=== PATIENT | female | born 1935 | race Caucasian/White ===

== ENCOUNTER 2018-07-04 13:00 | Emergency (ER) | payer MEDICARE, SELFPAY ==
[2018-07-04 13:00] VITALS: BP 165/74; PULSE 103; RESP 16; TEMP 36.8; O2SAT 98; BMI 28.2
--- NOTE | 2018-07-04 14:53 | CT_ITS ---
STUDY: CT BRAIN WITHOUT CONTRAST REASON FOR EXAM: Female, 82 years old. Fall. Laceration. RADIATION DOSAGE (If Supplied By Facility): CTDIvol = ( 44.99 ) mGy, DLP = ( 779.24 ) mGycm TECHNIQUE: Transaxial CT imaging of the brain was performed without administration of intravenous contrast material. Individualized dose optimization techniques were used for this CT. COMPARISON: None. FINDINGS: Soft tissue swelling in the right frontal region. Normal calvarium. Right nasal fracture of uncertain age. There is mild cerebral atrophy with widening of the extra-axial spaces and ventricular dilatation. Normal white matter tracts of the cerebral hemispheres. Normal basal ganglia and thalami. Normal brainstem. There is mild cerebellar atrophy. There is no intracranial hemorrhage. There are no findings of an acute ischemic infarction. Normal visualized paranasal sinuses. CT/Brain/Head without Contrast IMPRESSION: Chronic involutional changes of the brain. Soft tissue swelling. No hemorrhage. Electronically Signed: Ja Johnston MD at 16:08 EDT , Service support ,
--- NOTE | 2018-07-04 14:53 | CT_ITS ---
STUDY: CT CERVICAL SPINE WITHOUT CONTRAST REASON FOR EXAM: Female, 82 years old. FELL STRUCK HEAD, LAC TO RT EYE BROW RADIATION DOSAGE (If Supplied By Facility): CTDIvol = ( 22.73 ) mGy, DLP = ( 458.38 ) mGycm TECHNIQUE: High resolution transaxial imaging was performed without contrast material. Sagittal and coronal images were reconstructed. Individualized dose optimization techniques were used for this CT. COMPARISON: None FINDINGS: Normal craniovertebral junction. There are degenerative changes of the anterior atlantoaxial articulation. Normal odontoid process. There is straightening of the normal cervical lordosis. Normal vertebral bodies and posterior osseous elements. No fracture. C2-3: Normal endplates. Normal disc height and morphology. Normal central canal and intervertebral neuroforamina. Mild bilateral facet arthropathy. C3-4: Disc height loss with degenerative endplate changes are noted. There is mild bilateral facet arthropathy and uncovertebral joint hypertrophy. There is mild encroachment upon the right neural foramen. The left neural foramen is patent. No central canal stenosis. C4-5: Marked disc height loss with fusion across the disc space and marginal osteophytes noted. There is mild bilateral facet arthropathy. There is no evidence of significant central or foraminal encroachment. C5-6: Marked disc height loss with prominent marginal osteophytes and uncovertebral joint hypertrophy noted. There is impression upon the ventral aspect of the thecal sac. AP diameter of the thecal sac is approximately 8 mm, a mild relative central canal stenosis. There is no evidence of lateral recess stenosis. There is moderate left and mild right neural foraminal encroachment. No significant facet arthropathy. C6-7: Disc height loss with anterior and posterior marginal osteophytes and uncovertebral joint hypertrophy is noted. There is no evidence of significant central canal stenosis. The neural foramina are patent. C7-T1: Disc height loss is noted. There are marginal osteophytes and there is subtle kyphosis at this level with anterior listhesis by approximately 1.5 mm asymmetric to the left but alignment central and to the right appears preserved. There is moderate posterior facet arthropathy. I suspect this subtle malalignment is secondary to facet arthropathy. There is no evidence of significant central or foraminal encroachment. Normal visualized soft tissue structures. CT/Spine Cervical without Contras IMPRESSION: Multilevel degenerative changes, as described above. No acute traumatic deformity. Electronically Signed: Gladys Chatterjee MD at 15:39 EDT , Service support ,
--- NOTE | 2018-07-04 15:07 | ED.DCSUM_ITS ---
- ER Visit Summary Date of Service: 07/04/18 Chief Complaint: Fall History of Present Illness: The patient is a 82 F states that she was walking her 3-year-old when she thinks may be she missed a step on the concrete and fell striking her face. She notes abrasions contusion to bilateral knees as well as right hand and fingers. She struck the concrete with her forehead. Probable loss of consciousness. No vomiting. No known blood thinners. Patient notes hematoma and abrasion to the right forehead. Noted laceration to the right upper eyelid. She also notes nasal abrasion and upper lip abrasion. Tetanus was updated this year Physical Examination: Afebrile vital signs are stable Gen: Well-nourished well-developed Head: Normocephalic right forehead hematoma with abrasion. Superficial nasal abrasion. Right periorbital abrasion and contusion with 1 cm upper lid laceration that is not through and through. Upper lip abrasion top dentures removed to reveal no laceration on the hard palate. No dental trauma. Eyes: Perrl EOMI ENT: TMs clear no rhinorrhea moist mucous membranes Neck: Supple no lymphadenopathy no JVD nontender CVS: Regular rate rhythm no murmurs normal S1-S2 Respiratory: No distress clear to auscultation bilaterally chest nontender Abdomen: Soft nontender nondistended normal bowel sounds no masses Back: Nontender Extremity: Bilateral knee contusion with superficial abrasion and right hand superficial abrasions Skin: Normal color no rash Neuro: alert orientated ?3 CN II-XII intact normal strength sensation reflexes gait cerebellar Psych: Normal affect normal mood Test Results: CT brain and cervical spine were obtained. Emergency Department Course and Treatment: Wound was locally anesthetized using 1% lidocaine and washed with Shur-Clens. It was explored and closed using a tot al of 4 simple interrupted 6-0 Ethilon sutures. Wound care was discussed with family. Stitches will need to be removed in 5-7 days. Impression: 1. Forehead hematoma 2. 1 cm right upper eyelid laceration with repair 3. Multiple site abrasions This note was generated with [employer] dictation software. It may contain incorrect words, spelling, and punctuation that were not noted in review of the chart prior to signing ED Disposition - Plan for ED Patient: Disposition: Home or Assisted Living Chief Complaint: Fall Instructions: ED Laceration Facial Sutr Tape, ED Abrasion Referrals: Judith Chan MD [Primary Care Provider] - 5 Days for suture removal
[2018-07-04 16:33] VITALS: BP 145/71; PULSE 96; RESP 16
== END 2018-07-04 16:33 | disposition home or self-care (01) ==
PROVIDERS: Emergency Provider Emergency Medicine; Family Provider Internal Medicine; PCP Internal Medicine
DX: S01.111A Laceration without foreign body of right eyelid and periocular area, initial encounter (principal); W17.89XA Other fall from one level to another, initial encounter; S00.31XA Abrasion of nose, initial encounter; S00.511A Abrasion of lip, initial encounter; S60.512A Abrasion of left hand, initial encounter; S60.511A Abrasion of right hand, initial encounter; S60.418A Abrasion of other finger, initial encounter; S80.212A Abrasion, left knee, initial encounter; S80.211A Abrasion, right knee, initial encounter; S00.81XA Abrasion of other part of head, initial encounter; S60.222A Contusion of left hand, initial encounter; S60.221A Contusion of right hand, initial encounter; S60.00XA Contusion of unspecified finger without damage to nail, initial encounter; S80.02XA Contusion of left knee, initial encounter; S80.01XA Contusion of right knee, initial encounter; S05.11XA Contusion of eyeball and orbital tissues, right eye, initial encounter; S00.531A Contusion of lip, initial encounter; I10 Essential (primary) hypertension; E78.00 Pure hypercholesterolemia, unspecified; Z79.899 Other long term (current) drug therapy
CPT/HCPCS: 12011; 70450; 72125; 99283

== ENCOUNTER 2020-08-17 11:24 | Emergency (ER) | payer MEDICARE, SELFPAY ==
[2020-08-17 11:25] VITALS: BP 161/89; PULSE 103; RESP 16; TEMP 36.3; O2SAT 100; BMI 25.3
[2020-08-17 12:32] LABS: Absolute Lymphocyte Count 1.47 X10^3/uL (0.83-4.51); Absolute Neutrophil Count 4.4 X10^3/uL (2.0-7.7); Basophil# 0.02 X10^3/uL; Basophil% 0.3 % (0-1); Eosinophil# 0.02 X10^3/uL; Eosinophils% 0.3 % (0-5); Hematocrit 48.3 % (37-47); Hemoglobin 16.5 g/dL (12.0-15.0); Lymphocyte # 1.47 X10^3/ul (4.0); Lymphocyte % 22.4 % (19-41); Mean Corp Hgb Conc 34.2 g/dL (32-36); Mean Corpuscular Hgb 31.2 pg (27.0-32.0); Mean Corpuscular Volume 91.3 fL (81-99); Mean Platelet Vol. 10.5 fl (6.2-12.0); Monocyte# 0.63 X10^3/uL; Monocyte% 9.6 % (0-10); NRBC Flagged by Analyzer 0 % (0-5); Neutrophil % 66.9 % (47-70); Platelet Count 249 K/mm3 (150-450); RBC Distribution Width CV 11.9 % (11.6-14.6); Red Blood Count 5.29 M/mm3 (4.2-5.4); White Blood Count 6.6 K/mm3 (4.4-11.0)
[2020-08-17 12:44] LABS: Anion Gap 7 (5-15); BUN 16 mg/dL (7-18); BUN/Creat Ratio 14.7 RATIO (10-20); Calcium,Total 9.2 mg/dL (8.5-10.1); Chloride 97 mmol/L (98-107); Creatinine, Serum 1.09 mg/dL (0.55-1.02); EST Glomerular Filtration Rate 51 mL/min (>60); Est Glom Filt Rate - Afr Amer 62 mL/min (>60); Estimated Creatinine Clearance 32.35 ml/min; Glucose 108 mg/dL (74-106); Potassium 3.2 mmol/L (3.5-5.1); Sodium Level 135 mmol/L (136-145)
[2020-08-17 12:52] LABS: Mucous, Urine 0 SEEN /hpf (<or=2+); Red Blood Cells-Urine 0 SEEN /hpf (0-5)
[2020-08-17 12:56] LABS: Color, Urine Yellow (Yellow); Glucose, Dipstick Normal (Normal); Ketone-Dipstick Negative (Negative); Leukocyte Esterase-Dipstick 100 /ul (Negative); Nitrite-Dipstick Negative (Negative); Occult Blood-Urine Negative /ul (Negative); Protein-Dipstick Negative (Negative); Urine Bilirubin Dipstick Negative (Negative); Urine Clarity Sl. Cloudy (Clear); Urine Urobilinogen Normal (Normal)
[2020-08-17 12:57] VITALS: BP 143/69; PULSE 81; RESP 13; O2SAT 99
[2020-08-17] MEDS: Ondansetron 4 MG/2 ML Vial IV (12:59)
[2020-08-17 13:02] LABS: Bacteria 1+ /hpf (None Seen); Squamous Epithelial Cells - UA 5-10 SEEN /hpf (5-10); White Blood Cells 10-25 SEEN /hpf (0-5)
[2020-08-17 13:21] VITALS: BP 132/56; BP 141/66; BP 150/64; PULSE 84; PULSE 85; PULSE 96
--- NOTE | 2020-08-17 14:02 | ED.DCSUM_ITS ---
- ER Visit Summary Date of Service: 08/17/20 Chief Complaint: Vomiting and lightheaded History of Present Illness: The patient is a [address] Chan. She reports that her was diagnosed with Covid 10 days ago. She states she tested negative that time. She reports that she is been vomiting intermittently over the past week. She estimates that she is vomited twice. No blood in her emesis. No diarrhea. No abdominal pain. No fever or chills. No chest pain, cough, or difficulty breathing. However, she reports that she has generalized weakness and feels lightheaded when she stands. She denies any other neurologic complaints. Physical Examination: Vitals: Stable. Afebrile. General: Well-nourished and well-developed. Head: Normocephalic atraumatic. Neck: Supple, no lymphadenopathy. No JVD. Nontender. Cardiovascular: Regular rate and rhythm. No murmurs. Respiratory: No respiratory distress. Clear to auscultation bilaterally. Abdominal: Soft, nontender, nondistended, normal bowel sounds. No guarding, rebound, or peritoneal signs. Back: Nontender. Extremities: Nontender, no edema. Skin: Normal color, no rash. Neurologic: Alert and oriented ?3. Cranial nerves II through XII are intact. Normal strength and sensation. Psych: Normal affect. Test Results: CBC shows an H&H of 16.5 and 48.3. Chem-7 shows sodium 135, potassium 3.2, chloride 97, glucose 108, creatinine 1.09. UA shows 10-25 white blood cells with 1+ bacteria and leukocytes. Emergency Department Course and Treatment: Patient was given a dose of Zofran IV. She was given a 500 cc bolus of normal saline. She was given Rocephin IV and her urine was sent for culture. She had negative orthostatic vital signs. Her ambulatory pulse ox was 98% on room air. Treatment Plan: Patient feels well and would like to go home. She will be discharged on 3 days of Cipro while she waits for her urine culture. She is also given Zofran for her nausea. Follow-up with her primary care physician 1 to 2 days if not improving. Return to the emergency department for any worsening symptoms. Disposition: To home in improved and stable condition. Impression: 1. Lightheadedness. 2. Exposure to COVID-19. 3. UTI. This note was generated with [employer] dictation software. It may contain incorrect words, spelling, and punctuation that were not noted in review of the chart prior to signing ED Disposition - Plan for ED Patient: Disposition: Home or Assisted Living Instructions: ED CYSTITIS Female Adult Prescriptions: Ciprofloxacin [Cipro] 500 mg PO BID #6 tab Prescription Printed Ondansetron [Zofran Odt] 4 mg PO Q8H PRN PRN #10 tab PRN Reason: Nausea Prescription Printed Referrals: Judith Chan MD [Primary Care Provider] - 3-5 Days if not improving
[2020-08-17] MEDS: Ceftriaxone 1 GM/50 ML BAG IV (14:19)
[2020-08-17 14:21] VITALS: BP 148/59; PULSE 85; RESP 12; O2SAT 99
[2020-08-17 15:04] VITALS: BP 148/59; PULSE 92; RESP 15; O2SAT 99
== END 2020-08-17 15:35 | disposition home or self-care (01) ==
PROVIDERS: Emergency Provider Emergency Medicine; PCP Internal Medicine
DX: R42 Dizziness and giddiness (principal); N39.0 Urinary tract infection, site not specified; Z20.828 Contact with and (suspected) exposure to other viral communicable diseases; I10 Essential (primary) hypertension; Z79.899 Other long term (current) drug therapy
CPT/HCPCS: 80048; 81001; 85025; 87077; 87086; 87088; 87186; 96361; 96365; 96374; 99285; J7040; A4216; J2405

== ENCOUNTER 2020-08-20 18:09 | Emergency (ER) | payer MEDICARE, SELFPAY ==
[2020-08-20 18:10] VITALS: BP 172/79; PULSE 107; RESP 16; TEMP 36.6; O2SAT 98; BMI 24.7
--- NOTE | 2020-08-20 19:07 | CT_ITS ---
STUDY: CT BRAIN WITHOUT CONTRAST REASON FOR EXAM: Female, 85 years old. VERTIGO/N/V RADIATION DOSAGE (If Supplied By Facility): CTDIvol = ( 44.99 ) mGy, DLP = ( 745.49 ) mGycm TECHNIQUE: Transaxial CT imaging of the brain was performed without administration of intravenous contrast material. Individualized dose optimization techniques were used for this CT. COMPARISON: Prior head CT exam of 07/04/2018 FINDINGS: Normal soft tissue structures. Normal calvarium. There is mild cerebral atrophy with widening of the extra-axial spaces and ventricular dilatation. There are areas of decreased attenuation within the white matter tracts of the supratentorial brain, consistent with microvascular disease changes. Normal basal ganglia and thalami. Normal brainstem. There is mild cerebellar atrophy. Carotid artery calcifications. There is no intracranial hemorrhage. There are no findings of an acute ischemic infarction. Normal visualized paranasal sinuses. CT/Brain/Head without Contrast IMPRESSION: No acute intracranial findings or changes. Negative for hemorrhage, hematoma or extra-axial fluid collection. Negative for demarcation of the new nonhemorrhagic infarct zone. Mild involutional changes stable from prior exam. Electronically Signed: Anastasia Gutierrez MD at 20:17 EST , Service support ,
--- NOTE | 2020-08-20 19:09 | ED.DCSUM_ITS ---
History of Present Illness Chief Complaint: Dizziness Informant: Patient Onset: Weeks - 1.5 Context: Gradual Onset Timing: Intermittent Quality: spinning dizziness Current Severity: Mild Maximum Severity: Moderate Worsened by: getting up Relieved by: remaining still, lying down Associated Symptoms: n/v when dizziness increases/occurs Narrative: Patient has been having dizziness and vomiting off and on, but mostly nausea for the past week and a half. She was here 3 days ago for the same symptoms and treated for lightheadedness and a urinary tract infection with Cipro, she is not getting any better with regards to her dizziness. She states it seems more like spinning. When she gets dizzy, she gets nauseated. It has been persistent. She denies headaches, tinnitus, earache, otorrhea, vision change, peripheral neurologic symptoms. She does not recall having this before. Turning her head does not reproduce major symptoms, but changing her postural position does. She has not felt near syncopal. When walking, she does feel off balance at times. With regards to COVID-19, she was tested about 1.5 or 2 weeks ago and tested negative, the same time as her when he tested positive. He did develop symptoms and has had symptoms of basically a mild upper respiratory tract infection. She does feel achy all over, she has not lost sensation of taste or smell, she denies cough, fevers, chills. - Past Medical History (1) Hypertension Status: Chronic Past Medical History - Allergies and Home Meds Allergies/Adverse Reactions: Allergies No Known Allergies Allergy (Verified 08/20/20 18:09) Primary Care Physician: Judith Chan MD [Primary Care Provider] - Lives: Spouse/ Significant Other Smoking Status: Never smoker Review of Systems General: Reports: Malaise. Denies: Chills, Fever, Sweats Eyes: Denies: Visual changes - bilaterally, Diplopia ENT: Denies: Bilateral ear pain, Rhinorrhea, Sore throat Cardiovascular: Denies: Chest pain, Palpitations Respiratory: Denies: Dyspnea, Cough, Dyspnea on exertion Gastrointestinal: Reports: Nausea, Vomiting. Denies: Abdominal pain, Diarrhea, Melena, Hematochezia Genitourinary: Denies: Dysuria, Hematuria, Frequency Musculoskeletal: Reports: Myalgias. Denies: Neck pain, Swelling, Extremity Pain Skin: Denies: Rash, Wounds Neurological: Reports: - - Vertigo. See HPI.. Denies: Headache, Weakness, Numbness Physical Exam Vital Signs/Narrative: Vital Signs Temp Pulse Resp BP Pulse Ox 08/20/20 18:10 97.8 F 107 H 16 172/79 H 98 Inital Vital Signs reviewed: Yes General: Well nourished, Well developed, No Acute Distress Head: Normocephalic, Atraumatic Eyes: Perrl, EOMI, - - Fatigable horizontal nystagmus. No vertical or rotatory nystagmus. ENT: Moist mucous membranes, No rhinorrhea, TM's clear. Negative for: Sinus tenderness Neck: Supple, Nontender, - - No carotid bruits bilaterally Cardiovascular: Regular rate, Regular rhythm, No murmurs Respiratory: No distress, CTA bilaterally, Chest nontender Abdomen: Soft, Nontender, Nondistended, Normal bowel sounds Back: Nontender, Normal Inspection Extremities: Nontender, No edema. Negative for: Calf Tenderness Skin: Normal color, No rash, No Trauma Neurological: Alert, Oriented x3, Cranial nerves II-XII grossly intact, Normal Strength, Normal Sensation, - - Normal ipccvo-be-chnp bilaterally, but abnormal nosq-fl-lmxh bilaterally with ataxia on both. Tariq-Hallpike maneuver causes horizontal nystagmus and mild symptoms bilaterally. Psychological: Normal affect, Normal Mood Diagnostic/Tx/Re-eval Impressions Brain CT 08/20/20 19:07 IMPRESSION: No acute intracranial findings or changes. Negative for hemorrhage, hematoma or extra-axial fluid collection. Negative for demarcation of the new nonhemorrhagic infarct zone. Mild involutional changes stable from prior exam. Electronically Signed: Anastasia Guteirrez MD at 20:17 EST , Service support , 08/20/20 19:07 Brain/Head without Contrast [CT] Stat Laboratory Results 08/20/20 19:35 Sodium 134 L Potassium 3.1 L Chloride 97 L Carbon Dioxide 29.0 Anion Gap 8 BUN 12 Creatinine 1.07 H Estim Creat Clear Calc 32.95 Est GFR (MDRD) Af Amer 63 Est GFR (MDRD) Non-Af 52 L BUN/Creatinine Ratio 11.2 Glucose 134 H Calcium 9.1 - Medical Decision Making With regard to the patient's possible urinary tract infection that she had no urinary symptoms from, her culture returned positive for Staph hominis hominis, in addition to contaminant. It is sensitive to moxifloxacin, so ciprofloxacin should be okay. Therefore I would consider her adequately covered. However I do not think her possible urinary tract infection is causing her vertigo. CT head obtained, and I repeated her basic metabolic panel since she had hypokalemia 3 days ago, which showed that her potassium is even lower from 3.2- 3.1. This was treated. Also sent a new Covid swab since she does have some nonspecific symptoms here, with a who is Covid positive, and she may have converted positive. This will be a send out and will not return today. She states that he just passed his 10-day dali. She understands that the CDC recommendations are that she should quarantine for 14 days beyond his 10 days, since she has continual contact with him, assuming she does not develop specific Covid symptoms. It is assumed that most of her symptoms now are related to her hypokalemia and her vertigo. With a negative head CT after 1.5 weeks of symptoms I am comfortable with her following up as an outpatient and treating her symptomatically. After meclizine and Zofran here she does feel better. Will prescribe these in addition to potassium and have her follow-up as an outpatient she is comfortable with that plan. ED Disposition - Plan for ED Patient: Disposition: Home or Assisted Living Diagnosis: Vertigo, Hypokalemia Instructions: ED Vertigo Unspecified, ED Potassium Deficiency Prescriptions: Meclizine HCl 25 mg PO Q8H PRN #20 tab PRN Reason: dizziness/vertigo Prescription Printed Potassium Chloride 20 meq PO BID #14 tab.er.prt Prescription Printed Ondansetron [Zofran Odt] 8 mg PO Q8H PRN PRN #16 tab PRN Reason: Nausea Prescription Printed Referrals: Judith Chan MD [Primary Care Provider] - 5-7 Days
[2020-08-20] MEDS: Ondansetron ODT 4 MG Tablet 8 MG PO (19:25)
[2020-08-20] MEDS: Meclizine HCl 25 MG Tablet PO (19:25)
[2020-08-20 19:57] LABS: Anion Gap 8 (5-15); BUN 12 mg/dL (7-18); BUN/Creat Ratio 11.2 RATIO (10-20); Calcium,Total 9.1 mg/dL (8.5-10.1); Chloride 97 mmol/L (98-107); Creatinine, Serum 1.07 mg/dL (0.55-1.02); EST Glomerular Filtration Rate 52 mL/min (>60); Est Glom Filt Rate - Afr Amer 63 mL/min (>60); Estimated Creatinine Clearance 32.95 ml/min; Glucose 134 mg/dL (74-106); Potassium 3.1 mmol/L (3.5-5.1); Sodium Level 134 mmol/L (136-145)
[2020-08-20 21:02] VITALS: BP 156/68; PULSE 87; RESP 18; O2SAT 98
== END 2020-08-20 21:02 | disposition home or self-care (01) ==
PROVIDERS: Emergency Provider Emergency Medicine; PCP Internal Medicine
DX: U07.1 COVID-19 (principal); R42 Dizziness and giddiness; E87.6 Hypokalemia; I10 Essential (primary) hypertension; Z79.899 Other long term (current) drug therapy
CPT/HCPCS: 70450; 80048; 87635; 99282; A4216; U0003

== ENCOUNTER 2022-01-24 03:38 | Emergency (ER) | payer MEDICARE, SELFPAY ==
[2022-01-24 03:39] VITALS: BP 157/70; PULSE 95; RESP 18; TEMP 36.3; O2SAT 95; BMI 24.1
--- NOTE | 2022-01-24 03:51 | EKG12_ITS ---
Test Reason : GEN ILL Blood Pressure : / mmHG Vent. Rate : 091 BPM Atrial Rate : 091 BPM P-R Int : 124 ms QRS Dur : 070 ms QT Int : 356 ms P-R-T Axes : 069 072 071 degrees QTc Int : 437 ms Normal sinus rhythm Nonspecific ST abnormality Abnormal ECG Confirmed by JOSE WALLER, ARIAN ([id number]), order editor ERIC HILTON ([id number]) on 01/26/2022 9:21:39 AM Referred By: NIGEL Confirmed By:ARIAN GARCIA MD
--- NOTE | 2022-01-24 03:52 | ED.VIS.GI ---
HPI HPI - GI History of Present Illness Chief Complaint: Abd Pain Informant: patient and family Narrative Narrative: Presents with intermittent nausea vomiting past 2 days. Epigastric tenderness. No chest pains. Started after eating large meal at [employer] the night prior. No diarrhea. Normal bowel movement yesterday states little darker however been using Pepto-Bismol. No anticoagulation medicines. Symptoms return at midnight this evening vomiting x2 with no hematemesis. No abdominal surgery history. Status post lumbar injection with steroids by Dr. Castano, on . Denies any fevers. Denies urinary symptoms. PFSH PFS Medical History Hyperlipemia Hypertension Home Medications simvastatin 1 tab PO QHS 07/04/18 [History Last Taken 01/19/22] triamterene-hydrochlorothiazid 1 tab PO DAILY 07/04/18 [History Last Taken 01/23/22] ascorbic acid (vitamin C) [Vitamin C] 500 mg PO DAILY 01/24/22 [History Last Taken 01/19/22] nitrofurantoin monohyd/m-cryst [Macrobid] 100 mg PO Q12H 5 Days #10 cap 01/24/22 [Rx Last Taken Unknown] omeprazole 40 mg PO DAILY #30 cap 01/24/22 [Rx Last Taken Unknown] ondansetron 4 mg PO Q6H PRN #10 tab 01/24/22 [Rx Last Taken Unknown] sucralfate [Carafate] 1 g PO BID #60 tab 01/24/22 [Rx Last Taken Unknown] Allergy/AdvReac Type Severity Reaction Status Date / Time No Known Allergies Allergy Verified 01/24/22 03:42 Social History Smoking Status: Never smoker ROS ROS ED Constitutional Constitutional ED: Denies chills, fever(s) or sweats Eyes Eyes: Denies change in vision ENT ENT ED: Denies dysphagia or sore throat Cardiovascular Cardiovascular: Denies chest pain, leg edema, palpitations or racing heartbeat Respiratory/Chest Respiratory/Chest: Denies cough, dyspnea or dyspnea on exertion Gastrointestinal Gastrointestinal: Reports abdominal pain, nausea and vomiting; Denies diarrhea Genitourinary Genitourinary ED: Denies dysuria, hematuria or urinary frequency Musculoskeletal Musculoskeletal: Denies back pain, extremity pain or neck pain Integumentary Denies rash or wounds Neurologic Neurologic: Denies headache(s), paresthesias or weakness EXAM Physical Exam Const Vital Signs: 01/24/22 03:39 Temperature 97.3 F L Temperature Source Temporal Pulse Rate 95 Respiratory Rate 18 Blood Pressure 157/70 H Blood Pressure Mean 99 Pulse Ox 95 Oxygen Delivery Method Room Air Positive well nourished and well developed General Appearance ED: well developed and NAD HEENT HEENT Narrative: Mild dry mucosal membranes. normocephalic and atraumatic Eyes PERRL, EOMs intact bilaterally and conjunctivae normal General Eye ED: Yes normal appearance of both eyes Neck no lymphadenopathy and supple General: Negative for tenderness Chest Wall Chest: Negative for tenderness Resp normal respiratory effort and normal air movement Effort and Inspection: symmetric chest movement; Negative for respiratory distress Cardio regular rate, regular rhythm and no murmurs Peripheral Pulses: pulses 2+ throughout GI normal to inspection, nondistended, normoactive bowel sounds GI Narrative: Mild epigastric tenderness to deep palpation. Negative Yang's McBurney's tenderness. No guarding or rebound. Palpation: Negative for guarding or rebound tenderness present Back/Spine no CVA tenderness and no thoracic nor lumbar tenderness Extremity normal to inspection General Extremety ED: Negative for edema or tenderness General Extremity: Negative for edema Neuro oriented x3 and no sensory deficits noted Sensorium / Orientation: awake and alert Skin no rashes or lesions noted and no wounds MDM MDM MDM Narrative Medical decision making narrative: Vital signs stable. Labs stable. Urine with signs of infection. CT a/p negative. Improving symptoms. Tolerating PO fluids. Rx meds,follow up with GI. Lab Data Attestation: I reviewed the patient's lab results. Radiography Diagnostic Testing: Clinical Impression(s) from Imaging Studies Abdomen/Pelvis CT 01/24/22 04:26 IMPRESSION: There is diverticulosis. Electronically Signed: Ron Boogie MD at 6:05 EDT , EKG Initial EKG: Attestation: I personally reviewed and interpreted this EKG as follows: Comments: Sinus rate of 91, no ST changes T wave flattening in aVL, nonspecific. QTc 437. Discharge Plan Triage Chief Complaint: Abd Pain ED Provider: Aime Beth Dx/Rx/DC Orders Clinical Impression: Abdominal pain, Nausea and vomiting, Dehydration, Acute UTI Instructions: Urinary Tract Infections in Women, ED Gastritis (Adult) Prescriptions: New sucralfate [Carafate] 1 gram tablet 1 g PO BID Qty: 60 RF: 0 omeprazole 40 mg capsule,delayed release(DR/EC) 40 mg PO DAILY Qty: 30 RF: 0 ondansetron 4 mg tablet,disintegrating 4 mg PO Q6H PRN (Reason: nausea and vomiting) Qty: 10 RF: 0 nitrofurantoin monohyd/m-cryst [Macrobid] 100 mg capsule 100 mg PO Q12H 5 Days Qty: 10 RF: 0 No Action triamterene-hydrochlorothiazid 37.5-25 capsule 1 tab PO DAILY RF: 0 simvastatin 20 MG tablet 1 tab PO QHS RF: 0 ascorbic acid (vitamin C) [Vitamin C] 250 mg Tablet 500 mg PO DAILY RF: 0 Primary Care Provider: Judith Chan Referrals: Judith Chan MD [Primary Care Provider] - 3-5 Days FriendBurak DO [STAFF PHYSICIAN] - 1-2 Weeks Activity Restrictions/Additional Instructions: Abdominal labs normal CT scan normal only finding cyst diverticulosis. This is benign. Your notes mild infection. Take antibiotic as prescribed. Take other medicines as prescribed. Follow-up as an outpatient. Return if any worsening symptoms. Disposition Disposition: Home, Self Care Discharge Date/Time: 01/24/22 06:52
[2022-01-24] MEDS: 0.9% Normal Saline 1,000 ML 1000 ML IV (03:59)
[2022-01-24] MEDS: Ondansetron 4 MG/2 ML Vial IV (03:59)
[2022-01-24 04:03] LABS: Absolute Lymphocyte Count 1.75 X10^3/uL (0.83-4.51); Absolute Neutrophil Count 12.4 X10^3/uL (2.0-7.7); Basophil# 0.02 X10^3/uL; Basophil% 0.1 % (0-1); Eosinophil# 0.02 X10^3/uL; Eosinophils% 0.1 % (0-5); Hematocrit 46.4 % (37-47); Hemoglobin 15.7 g/dL (12.0-15.0); Lymphocyte # 1.75 X10^3/ul (0.83-4.51); Lymphocyte % 11.3 % (19-41); Mean Corp Hgb Conc 33.8 g/dL (32-36); Mean Corpuscular Hgb 30.6 pg (27.0-32.0); Mean Corpuscular Volume 90.4 fL (81-99); Mean Platelet Vol. 10.5 fl (6.2-12.0); Monocyte# 1.29 X10^3/uL; Monocyte% 8.3 % (0-10); NRBC Flagged by Analyzer 0 % (0-5); Neutrophil # 12.37 X10^3/uL (2.7-7.7); Neutrophil % 79.7 % (47-70); Platelet Count 310 K/mm3 (150-450); RBC Distribution Width CV 12.3 % (11.6-14.6); RBC Distribution Width SD 41.1 fl (35.1-43.9); Red Blood Count 5.13 M/mm3 (4.2-5.4); White Blood Count 15.5 K/mm3 (4.4-11.0)
[2022-01-24] MEDS: Famotidine 200 MG/20 ML MDV 20 MG in 0.9% Normal Saline (Pres. free 8 ML 300 MG IV (04:11)
[2022-01-24 04:20] LABS: AST(SGOT) 13 U/L (15-37); Alanine Aminotransfer ALT/SGPT 28 U/L (13-56); Albumin, Serum 3.6 g/dL (3.2-5.0); Alkaline Phosphatase 45 U/L (45-117); Anion Gap 11 (5-15); BUN 31 mg/dL (7-18); BUN/Creat Ratio 29.2 RATIO (10-20); Chloride 97 mmol/L (98-107); Creatinine, Serum 1.06 mg/dL (0.55-1.02); EST Glomerular Filtration Rate 52 mL/min (>60); Est Glom Filt Rate - Afr Amer 63 mL/min (>60); Estimated Creatinine Clearance 32.68 ml/min; Globulin 4.1 g/dL (2.2-4.2); Glucose 136 mg/dL (74-106); Lipase 325 U/L (73-393); Potassium 3.7 mmol/L (3.5-5.1); Protein, Total 7.7 g/dL (6.4-8.2); Sodium Level 135 mmol/L (136-145)
--- NOTE | 2022-01-24 04:26 | CT_ITS ---
STUDY: CT ABDOMEN AND PELVIS WITH CONTRAST REASON FOR EXAM: Female, 86 years old. abd pain RADIATION DOSAGE (If Supplied By Facility): CTDIvol = ( 11.85 ) mGy, DLP = ( 679.79 ) mGycm TECHNIQUE: Transaxial images were obtained from the dome of the diaphragm to the symphysis pubis without oral contrast. IV 100mL Isovue-[id number] was administered. Sagittal and coronal images were reconstructed. Individualized dose optimization techniques were used for this CT. COMPARISON: None. FINDINGS: The visualized lung bases are unremarkable. The visualized portions of the heart are within normal limits. Normal liver. Normal gallbladder and extrahepatic biliary system. Normal spleen. Normal pancreas. Normal bilateral adrenal glands. Normal right kidney. Normal left kidney. Normal visualized stomach. Normal small intestine. There is moderate diverticulosis of the colon.. The appendix is visualized and appears normal. Normal abdominal aorta. Normal inferior vena cava. Normal retroperitoneum. Normal urinary bladder. Normal abdominal wall. Normal osseous structures. CT/Abdomen/Pelvis W IV Cont ONLY IMPRESSION: There is diverticulosis. Electronically Signed: Ron Boogie MD at 6:05 EDT ,
[2022-01-24] MEDS: Metoclopramide 10 MG/2 ML Vial 5 MG IV (04:28)
[2022-01-24 05:29] LABS: Mucous, Urine 0 SEEN /hpf (<or=2+); Red Blood Cells-Urine 0 SEEN /hpf (0-5)
[2022-01-24 05:30] LABS: Color, Urine Yellow (Yellow); Glucose, Dipstick Normal (Normal); Ketone-Dipstick Negative (Negative); Leukocyte Esterase-Dipstick 100 /ul (Negative); Nitrite-Dipstick Negative (Negative); Occult Blood-Urine Negative /ul (Negative); Protein-Dipstick Negative (Negative); Urine Bilirubin Dipstick Negative (Negative); Urine Clarity Clear (Clear); Urine Urobilinogen Normal (Normal)
[2022-01-24 05:53] LABS: Bacteria RARE /hpf (None Seen); Squamous Epithelial Cells - UA 0-5 SEEN /hpf (5-10); White Blood Cells 0-5 SEEN /hpf (0-5)
[2022-01-24] MEDS: Mag Hydrox/Al Hydrox/Simeth 30 ML UDC PO (06:13)
[2022-01-24 06:30] VITALS: BP 124/59; PULSE 88; RESP 16; TEMP 36.6; O2SAT 98
[2022-01-24 06:50] VITALS: BP 124/74; PULSE 74; RESP 16; O2SAT 98
== END 2022-01-24 06:52 | disposition home or self-care (01) ==
PROVIDERS: Emergency Provider Emergency Medicine; PCP Internal Medicine; Visit Provider Emergency Medicine
DX: R10.816 Epigastric abdominal tenderness (principal); R11.2 Nausea with vomiting, unspecified; E78.5 Hyperlipidemia, unspecified; I10 Essential (primary) hypertension; Z79.899 Other long term (current) drug therapy
CPT/HCPCS: 74177; 80048; 80076; 81001; 83690; 85025; 87086; 87088; 93005; 96361; 96374; 96375; 99283; J7030; Q9967; J2405; J3490

== ENCOUNTER → 2024-03-13 | Outpatient (CLI) | payer MEDICARE, SELFPAY ==
--- NOTE | 2024-03-13 13:40 | RAD_ITS ---
PROCEDURE: Fluoroscopic guided Hip Injection DATE: March 13, 2024. INDICATION: Female, 88 years old. Chronic right hip pain. PHYSICIAN: Prince Mccain M.D. MEDICATIONS: 6 mg of betamethasone and 3 cc of 1% lidocaine. 2% lidocaine administered subcutaneously for local anesthesia. ACCESS SITE: Right hip. NEEDLE: 22-gauge spinal needle. FLUOROSCOPY TIME (if supplied): (0:21) minutes/seconds. 5.92 mGy. One image was obtained. FINDINGS: The risks, benefits, and alternatives to the procedure were explained to the patient. The specific risks of bleeding, infection, and neurovascular injury were detailed and accepted. Witnessed informed consent was obtained. A the needle was positioned under radiographic fluoroscopic localization. Approximately 2 cc of Isovue-200 instilled for localization purposes. Medication was then injected. The patient tolerated the procedure well without any immediate complications. RAD/Inj/Asp Elan Jt Should/Hip/Knee IMPRESSION: 1. Successful fluoroscopic guided hip injection. Electronically Signed: Prince Mccain MD at 14:28 EDT ,
[2024-03-13] MEDS: Lidocaine 2% (5ml sdv) 5 ML VIAL.MPF INFILT (13:58)
[2024-03-13] MEDS: Betamethasone/Betamethasone 30 MG/5 ML Vial 6 MG OPERA.SITE (14:00)
== END | disposition home or self-care (01) ==
LOC: RAD 13:06
PROVIDERS: PCP Internal Medicine; Referring Provider Specialist; Visit Provider Specialist
DX: M16.0 Bilateral primary osteoarthritis of hip (principal); I10 Essential (primary) hypertension
CPT/HCPCS: 20610; 77002; Q9967; J0702

== ENCOUNTER → 2024-04-15 | Outpatient (CLI) | payer MEDICARE, SELFPAY ==
[2024-04-15 17:43] LABS: Absolute Lymphocyte Count 2.05 X10^3/uL (0.83-4.51); Absolute Neutrophil Count 3.5 X10^3/uL (2.0-7.7); Basophil# 0.03 X10^3/uL; Basophil% 0.5 % (0-1); Eosinophil# 0.26 X10^3/uL; Eosinophils% 4.1 % (0-5); Hemoglobin 15.1 g/dL (12.0-15.0); Lymphocyte # 2.05 X10^3/ul (0.83-4.51); Lymphocyte % 32.5 % (19-41); Mean Corp Hgb Conc 32.8 g/dL (32-36); Mean Corpuscular Hgb 30.5 pg (27.0-32.0); Mean Corpuscular Volume 92.9 fL (81-99); Mean Platelet Vol. 10.7 fl (6.2-12.0); Monocyte# 0.47 X10^3/uL; Monocyte% 7.4 % (0-10); NRBC Flagged by Analyzer 0 % (0-5); Neutrophil # 3.48 X10^3/uL (2.7-7.7); Neutrophil % 55.2 % (47-70); Platelet Count 266 K/mm3 (150-450); RBC Distribution Width CV 11.9 % (11.6-14.6); RBC Distribution Width SD 40.5 fl (35.1-43.9); Red Blood Count 4.95 M/mm3 (4.2-5.4); White Blood Count 6.3 K/mm3 (4.4-11.0)
[2024-04-15 17:54] LABS: ALB/GLOB Ratio 0.9 RATIO (0.9-2.4); AST(SGOT) 12 U/L (15-37); Alanine Aminotransfer ALT/SGPT 22 U/L (13-56); Albumin, Serum 3.6 g/dL (3.2-5.0); Alkaline Phosphatase 50 U/L (45-117); Anion Gap 9 (5-15); BUN 24 mg/dL (7-18); BUN/Creat Ratio 19.8 RATIO (10-20); Calcium,Total 9.1 mg/dL (8.5-10.1); Chloride 103 mmol/L (98-107); Creatinine, Serum 1.21 mg/dL (0.55-1.02); EST Glomerular Filtration Rate 45 mL/min (>60); Est Glom Filt Rate - Afr Amer 54 mL/min (>60); Globulin 3.8 g/dL (2.2-4.2); Glucose 163 mg/dL (74-106); Potassium 3.6 mmol/L (3.5-5.1); Protein, Total 7.4 g/dL (6.4-8.2); Sodium Level 136 mmol/L (136-145)
== END | disposition home or self-care (01) ==
LOC: MTLAB 14:00
PROVIDERS: PCP Internal Medicine; Referring Provider Podiatrist; Visit Provider Podiatrist
DX: B35.1 Tinea unguium (principal)
CPT/HCPCS: 36415; 80053; 84550; 85025

== ENCOUNTER → 2024-10-21 | Outpatient (CLI) | payer MEDICARE, SELFPAY ==
--- NOTE | 2024-10-21 12:45 | MRI_ITS ---
STUDY: MRI LUMBAR SPINE WITHOUT CONTRAST REASON FOR EXAM: Female, 89 years old. H/O STRESS FX, LOW BACK PAIN AND WEAKNESS IN BILATERAL KNEES TECHNIQUE: Standardized fat and water weighted pulse sequences were obtained in the sagittal and axial planes. Noncontrast images obtained. Contrast: No contrast administered COMPARISON: None FINDINGS: Vertebral bodies and alignment. 1. Vertebral body height is maintained with the exception of mild deformity superior endplate of T12, and moderate endplate changes along the superior endplate of L4. 2. There is mild mixed Modic type I and II changes involving the endplates at L2-3. There is a mild grade 1 anterolisthesis of L2.. 3. Paraspinous soft tissue planes have normal appearance. Normal appearance of the muscular fascial planes of the erector spinae. 4. Normal appearance of the sacrum and sacroiliac joints. Intervertebral disks levels. T11- T12: Deformity superior endplate of T12 on, mild endplate edema, and mild retropulsion of the posterior lip of the superior endplate of T12. No canal stenosis or cord compression. Neural foramina are normal. Endplate: Endplate deformity and edema involving the superior endplate T12. T12-L1: Mild disc desiccation without disc herniation canal or foraminal stenosis. Endplate: No focal endplate marrow changes or endplate deformity. L1-2: Disc desiccation without disc herniation canal or foraminal stenosis. Endplate: No focal endplate marrow changes or endplate deformity. L2-3: Loss of disc height, endplate Modic changes, mild anterolisthesis of L2, and broad-based disc bulge/protrusion greater on the RIGHT than LEFT with extruded disc material extending into the anterior epidural space at the level of the RIGHT neural foramen. No central canal stenosis. There is crowding of nerve roots however in the RIGHT lateral recess. Facet and ligamentum flavum hypertrophic changes are present. There is a moderate to severe RIGHT foraminal stenosis. Endplate: Modic changes involving both endplates. L3-4: Disc space narrowing, broad-based posterior disc bulge/borderline protrusion and osteophyte without evidence central canal stenosis, however there is crowding of nerve roots lateral recesses greater on the RIGHT than LEFT contributed by broad-based disc changes facet and ligament flavum hypertrophic changes. There is moderate foraminal stenosis. Endplate: Significant endplate deformity involving the superior endplate of L4, Modic type II fatty marrow changes are present without marrow edema. L4-5: Disc desiccation broad-based disc bulge, no central canal stenosis. Facet and ligament flavum hypertrophic changes are present. There is crowding of nerve roots lateral recesses greater on the RIGHT. Neural foramina are widely patent. Endplate: No focal endplate marrow changes or endplate deformity. L5-S1: Loss of disc height, broad-based posterior disc bulge and osteophyte complex without evidence of central canal stenosis or nerve root impingement. Neural foramina are widely patent. Endplate: No focal endplate marrow changes or endplate deformity. Spinal cord: Normal appearance of the spinal cord and conus. Conus is located at T12-L1. Cauda equina has normal appearance. No evidence of cord compression or edema. No intramedullary signal abnormality noted. Paraspinous soft tissues: Normal visualized paraspinous soft tissue structures. MRI/Spine Lumbar (Routine) IMPRESSION: 1. Multilevel disc and endplate changes. There is a grade 1 anterolisthesis of L2 on L3, Modic type I and II changes involving the endplates. There is a broad-based disc bulge/protrusion greater on the RIGHT than LEFT extending into the RIGHT lateral recess and RIGHT neural foramen. There is small amount of extruded disc material. No central canal stenosis however compression of nerve roots in the RIGHT lateral recess and RIGHT neural foramen suspected.] 2. Broad-based disc bulge and osteophyte complex at L3-4 without central canal stenosis however crowding of nerve roots in the lateral recesses due to disc, facet and ligament ligamentum flavum hypertrophic changes. 3. Disc bulge and facet and ligamentum flavum hypertrophic changes at L4-5 with crowding of nerve roots lateral recesses without central canal stenosis. 4. Central disc protrusion osteophyte complex at L5-S1 without canal stenosis or nerve root impingement. 5. Compression deformity superior endplate of T12 with mild endplate edema and minimal retropulsion of the posterior lip of the superior endplate of T12 without canal stenosis or cord compression. 6. Normal appearance of visualized spinal cord and conus. Electronically Signed: Oneal Gray MD at 0:47 EST ,
== END | disposition home or self-care (01) ==
PROVIDERS: PCP Internal Medicine; Referring Provider Orthopaedic Surgery Orthopaedic Surgery of the Spine; Visit Provider Orthopaedic Surgery Orthopaedic Surgery of the Spine
DX: M54.50 Low back pain, unspecified (principal)
CPT/HCPCS: 72148